=== PATIENT | male | born 1960 | race Caucasian/White ===

== ENCOUNTER 2016-08-22 15:17 | Emergency (ER) | payer MEDICAID ==
[2016-08-22 15:23] VITALS: BP 159/90; BMI 25.8
--- NOTE | 2016-08-22 15:55 | DR.EXTPAIN ---
HPI - Time seen Time seen: 15:55 - PCP Primary Care Physician: LASHA ARNDT - HPI Comment HPI Comment: PATIENT HAVE HAD PAIN IN RIGHT FOOT TIMES 2 MONTHS. WORSE PAST FEW PAINS. PAIN MORE BASE 2ND TOE. WALKING ON THE HILL. NO OBVIOUS INJURY REPORTED. - Complaint/Symptoms Chief Complaint Doctor Comments: RIGHT FOOT PAIN TIMES 2 MONTHS. Chief Complaint:: PT STATES " I THANK I BROKE MY RIGHT FOOT IT FEELS LIKE IT I HAVE NOT HAD ANY INJURY" - Nurses notes reviewed Nurses Notes Review: Yes - Source History Provided: Patient - Mode of arrival Mode of Arrival: Ambulatory - Timing Onset of Chief Complaint: 06/24/16 - Context History of: None - Associated signs and symptoms Associated Signs and Symptoms: Pain, Swelling PMH - PMH Past Medical History: No Past Medical History: Anxiety, Arthritis, Hypertension Past Surgical History: No Surgical History: Tonsillectomy - Family History History of Family Medical Conditions: Yes Family Medical History: Coronary Artery Disease, Hypertension - Social History Does patient currently use any type of tobacco product: Yes Have you used tobacco products in the last 12 months: Yes Type of Tobacco Use: Cigarettes Does any household member use tobacco: No Alcohol Use: Rarely Do you use any recreational Drugs:: No Lives With: Alone Lives Where: Home - infectious screening In the last 2 months have you had wt loss of >10#?: NO Have you had fever, night sweats or hemotysis?: No Have you traveled outside the country in the last 6 months?: No Isolation: Standard ROS - Review of Systems Constitutional: No Symptoms Reported Eyes: No Symptoms Reported ENTM: No Symptoms Reported Respiratoy: No Symptoms Reported Cardiovascular: No Symptoms Reported Gastrointestinal/Abdominal: No Symptoms Reported Genitourinary: No Symptoms Reported Neurological: No Symptoms Reported Musculoskeletal: Right, Ankle Integumentary: No Symptoms Reported Hematologic/Lymphatic: No Symptoms Reported Endocrine: No Symptoms Reported All Other Systems: Reviewed and Negative PE - Vital Signs Vitals: Pulse Rate 79 Respiratory Rate 20 Blood Pressure [Left Arm] 148/78 Blood Pressure 159/90 O2 Sat by Pulse Oximetry 100 - General Limitations: No Limitations - Head Head Exam: Normal Inspection - Eyes Eye exam: Normal Appearance - ENT ENT Exam: Normal External Ear Exam - Neck Neck Exam: Trachea Midline - Chest Chest Inspection: Symmetric Chest Wall Rise - Respiratory Respiratory Exam: Bilateral Clear to Auscultation - Cardiovascular Cardiovascular Exam: Regular Rate, Normal Rhythm, Normal Heart Sounds - Extremities Extremities Exam: Tenderness (RIGHT [employer]GY CONSERVATION [employer]IST DISTAL ASPECT.) - Lower Extremities Foot/Toe Exam: Tenderness (RT), Swelling (RT) - Skin Skin Exam: Normal Color MDM - Differential Diagnosis Differential Diagnosis: Fracture, Sprain Course - Treatment Treatment: SEE ORDERS - Education/Counseling Education/Counseling: Patient, Education Educated On: Treatment, Diagnosis, Needs for Follow Up ROR - XRAY XRAY Interpreted by: Radiologist XRAY Findings: REPORT DISCUSS WITH PATIENT. - Diagnosis Discharge Problem: Foot fracture, right Qualifiers: Encounter type: initial encounter Fracture type: closed Qualified Code(s): S92.901A - Unspecified fracture of right foot, initial encounter for closed fracture - Discharge Plan Disposition: HOME, SELF-CARE Condition: Stable Prescriptions: Ibuprofen [MOTRIN TAB 600 MG *] 600 mg PO TID PRN #20 tab PRN Reason: Pain/Inflammation Tramadol HCl 50 mg PO Q8H PRN #15 tab PRN Reason: Pain - Follow ups/Referrals Follow ups/Referrals: NFD,None [Primary Care Provider] - 2 days - Instructions Instructions: Toe Fracture Additional Instructions: RETURN TO ED IF WORSE.
--- NOTE | 2016-08-22 16:29 | RAD ---
HISTORY: Right foot pain. Comparison: None. EXAM: Three view series of the right foot. Findings: The exam demonstrates a subtle fracture of the base of the proximal 2nd phalanx; age indeterminate. There is a chronic appearing fracture of the mid shaft of the right 5th metatarsal bone with associa nicolasa angular deformity. No other acute fracture or acute bony injury is seen. Lisfranc joint is intac t without widening or divergence. There is mild dorsal foot soft tissue swelling edema also seen. No unexpected foreign bodies are identified. Impression: Fractures of the 5th and 2nd digits, as above. Reported By:
[2016-08-22] MEDS ORDERED: TORADOL 60 MG VIAL IM ONE (16:30)
[2016-08-22] MEDS ORDERED: TORADOL 60 MG VIAL ONE (16:36)
== END 2016-08-22 17:02 | disposition home or self-care (01) ==
LOC: ER 15:17
DX: S92.901A Unspecified fracture of right foot, initial encounter for closed fracture (principal); Y33.XXXA Other specified events, undetermined intent, initial encounter; Y92.9 Unspecified place or not applicable
CPT/HCPCS: 73630; 96372; 99282; 99283; J1885

== ENCOUNTER → 2016-09-11 | Outpatient (CLI) | payer MEDICAID ==
[2016-08-22 15:23] VITALS: BP 159/90
[2016-09-11 10:59] LABS: BASOPHILS % (AUTO) 0.3 % (0.2-1.0); EOSINOPHILS # (AUTO) 0.1 x10^3/uL (0.0-0.2); EOSINOPHILS % (AUTO) 0.9 % (0.9-2.9); HEMATOCRIT 43.9 % (42.0-54.0); HEMOGLOBIN 14.9 g/dL (13.5-18.0); MEAN CORPUSCULAR HEMOGLOBIN 30.3 pg (27.0-34.0); MEAN CORPUSCULAR HGB CONC 33.9 g/dL (33.0-35.0); MEAN CORPUSCULAR VOLUME 89.5 fL (80.0-100.0); MEAN PLATELET VOLUME 8.4 fL (7.4-11.0); MONOCYTES # (AUTO) 0.6 x10^3/uL (0.3-0.8); MONOCYTES % (AUTO) 6.3 % (0.0-13.0); NEUTROPHILS # (AUTO) 7.8 x10^3/uL (2.2-4.8); NEUTROPHILS % (AUTO) 81.5 % (42.0-75.0); PLATELET COUNT 127 X10^3/uL (150.0-450.0); RED CELL DISTRIBUTION WIDTH 14.6 % (11.6-16.5); WHITE BLOOD COUNT 9.5 X10^3/uL (3.6-10.0)
[2016-09-11 11:20] LABS: ALANINE AMINOTRANSFERASE 142 Units/L (12-78); ALKALINE PHOSPHATASE 64 Units/L (46-116); ASPARTATE AMINO TRANSFERASE 104 Units/L (15-37); BLOOD UREA NITROGEN 10 mg/dL (7-18); CALCIUM 8.7 mg/dL (8.5-10.1); CARBON DIOXIDE 25.9 mmol/L (21-32); CHLORIDE 104 mmol/L (98-107); CHOL/HDL RATIO 1.6 (0.0-5.0); CHOLESTEROL 182 mg/dL (0-200); COR NA(FOR HYPERGLY) 138 mmol/L (136-145); CREATININE 0.78 mg/dL (0.70-1.30); GLUCOSE 120 mg/dL (65-99); HDL CHOLESTEROL 112 mg/dL (40-60); SODIUM 138 mmol/L (136-145); T4 (THYROXINE) 7.9 ug/dL (4.7-13.3); TOTAL PROTEIN 8.7 g/dL (6.4-8.2); TRIGLYCERIDES 40 mg/dL (0-150); TSH (3RD GENERATION) 1.059 uIU/mL (0.358-3.74); eGFR BLACK RACES > 60 (>60); eGFR NON BLACK RACES > 60 (>60)
[2016-09-11 12:08] LABS: TOTAL PSA 3.04 ng/mL (0.13-4.0)
== END ==
LOC: LAB 10:36
PROVIDERS: ATTEND Nurse Practitioner Family
DX: Z85.89 Personal history of malignant neoplasm of other organs and systems (principal); Z87.898 Personal history of other specified conditions; Z87.81 Personal history of (healed) traumatic fracture
CPT/HCPCS: 36415; 80053; 80061; 82306; 82607; 83970; 84153; 84436; 84443; 85025; 85610; 86140

== ENCOUNTER 2016-12-23 23:17 | Emergency (ER) | payer MEDICAID ==
[2016-12-23 23:27] VITALS: BP 141/93
[2016-12-23 23:28] VITALS: BMI 23.8
== END 2016-12-24 00:10 | disposition left against medical advice (07) ==
LOC: ER 23:17
DX: M25.521 Pain in right elbow (principal); W10.9XXA Fall (on) (from) unspecified stairs and steps, initial encounter; Y92.9 Unspecified place or not applicable
CPT/HCPCS: 99281

== ENCOUNTER → 2017-04-02 | Outpatient (CLI) | payer MEDICAID ==
[2017-04-02 12:02] LABS: ALANINE AMINOTRANSFERASE 226 Units/L (12-78); ALBUMIN 3.8 g/dL (3.4-5.0); ALKALINE PHOSPHATASE 77 Units/L (46-116); ASPARTATE AMINO TRANSFERASE 116 Units/L (15-37); BLOOD UREA NITROGEN 11 mg/dL (7-18); CALCIUM 9.1 mg/dL (8.5-10.1); CHLORIDE 104 mmol/L (98-107); CHOL/HDL RATIO 1.9 (0.0-5.0); CHOLESTEROL 183 mg/dL (0-200); CREATININE 0.81 mg/dL (0.70-1.30); HDL CHOLESTEROL 95 mg/dL (40-60); SODIUM 139 mmol/L (136-145); TOTAL PROTEIN 8.4 g/dL (6.4-8.2); TRIGLYCERIDES 87 mg/dL (0-150); eGFR BLACK RACES > 60 (>60); eGFR NON BLACK RACES > 60 (>60)
[2017-04-02 12:04] LABS: BASOPHILS % (AUTO) 0.3 % (0.2-1.0); EOSINOPHILS # (AUTO) 0.1 x10^3/uL (0.0-0.2); EOSINOPHILS % (AUTO) 2.4 % (0.9-2.9); HEMATOCRIT 44.1 % (42.0-54.0); HEMOGLOBIN 15.1 g/dL (13.5-18.0); LYMPHOCYTES # (AUTO) 1.1 X10^3/uL (1.3-2.9); LYMPHOCYTES % (AUTO) 19.6 % (21.0-51.0); MEAN CORPUSCULAR HEMOGLOBIN 30.6 pg (27.0-34.0); MEAN CORPUSCULAR HGB CONC 34.2 g/dL (33.0-35.0); MEAN CORPUSCULAR VOLUME 89.5 fL (80.0-100.0); MEAN PLATELET VOLUME 8.7 fL (7.4-11.0); MONOCYTES # (AUTO) 0.8 x10^3/uL (0.3-0.8); MONOCYTES % (AUTO) 13.8 % (0.0-13.0); NEUTROPHILS # (AUTO) 3.5 x10^3/uL (2.2-4.8); NEUTROPHILS % (AUTO) 63.9 % (42.0-75.0); PLATELET COUNT 250 X10^3/uL (150.0-450.0); RED BLOOD COUNT 4.93 X10^6/uL (4.7-6.0); RED CELL DISTRIBUTION WIDTH 15.9 % (11.6-16.5); WHITE BLOOD COUNT 5.5 X10^3/uL (3.6-10.0)
[2017-04-02 12:26] LABS: TOTAL PSA 5.31 ng/mL (0.13-4.0)
--- NOTE | 2017-04-05 14:37 | RAD ---
History: Right foot pain Study AP and lateral and oblique views of the right foot Comparison: August 22, 2016 The findings: There is no interval change. There is an old fracture through the diaphysis of the 5th metatarsal with angulation and foreshortening at the fracture site. There are mild osteophytes about the interphalangeal joint of the great toe. There is no acute fracture. Impression: No change, old 5th metatarsal fracture, no acute disease demonstrated. Reported By:
== END ==
LOC: RAD 11:12
PROVIDERS: ATTEND Nurse Practitioner Family
DX: I10 Essential (primary) hypertension (principal); Z12.5 Encounter for screening for malignant neoplasm of prostate; E78.4 Other hyperlipidemia; E56.8 Deficiency of other vitamins; M79.671 Pain in right foot
CPT/HCPCS: 36415; 73630; 80053; 80061; 82306; 84153; 85025

== ENCOUNTER 2017-06-26 12:23 | Emergency (ER) | payer MEDICAID ==
[2017-06-26 12:28] VITALS: BMI 25.8
--- NOTE | 2017-06-26 13:11 | DR.GENAD ---
HPI - PCP Primary Care Physician: NFD - Complaint/Symptoms Chief Complaint Doctors Comments: Patient admits to slipping and fell from porch sustaine injury to right lower back. Admits to pain and lump on back. Chief Complaint:: "A couple of weeks ago when it snowed I fell and hit my back on the bottom step of my porch. I figured it would go away, but it has gotten worse. I have a huge knot on the right side of my lower back that hasn't went away." - Source History Provided: Patient - Mode of Arrival Mode of Arrival: Ambulatory - Timing Onset of Chief Complaint: 06/09/17 PMH - PMH Past Medical History: Yes Past Medical History: Anxiety, Arthritis, Hypertension Past Surgical History: Yes Surgical History: Ortho Surgery, Tonsillectomy Past Surgical History Comment: Finger, eye - Family History History of Family Medical Conditions: Yes Family Medical History: Coronary Artery Disease, Hypertension - Social History Does patient currently use any type of tobacco product: Yes Have you used tobacco products in the last 12 months: Yes Type of Tobacco Use: Cigarettes Does any household member use tobacco: No Alcohol Use: None Do you use any recreational Drugs:: No Lives With: Alone Lives Where: Home - infectious screening In the last 2 months have you had wt loss of >10#?: NO Have you had fever, night sweats or hemotysis?: No Have you traveled outside the country in the last 6 months?: No Isolation: Standard ROS - Review of Systems Eyes: No Symptoms Reported ENTM: No Symptoms Reported Respiratoy: No Symptoms Reported Cardiovascular: No Symptoms Reported Gastrointestinal/Abdominal: No Symptoms Reported Genitourinary: No Symptoms Reported Neurological: No Symptoms Reported Musculoskeletal: Back Pain Integumentary: No Symptoms Reported Hematologic/Lymphatic: No Symptoms Reported Endocrine: No Symptoms Reported Psychiatric: No Symptoms Reported All Other Systems: Reviewed and Negative PE - Vital Signs Vitals: Temperature 97.8 F Pulse Rate [Left Brachial] 95 Pulse Rate 83 Respiratory Rate 20 Blood Pressure [Right Arm] 161/76 Blood Pressure [Left Arm] 172/79 Blood Pressure 134/74 O2 Sat by Pulse Oximetry 97 - General Limitations: No Limitations General Appearance: Alert, In No Apparent Distress - Head Head Exam: Normal Inspection, Atraumatic - Eyes Eye exam: Normal Appearance, PERRL, EOMI - ENT ENT Exam: Normal Exam, Normal Oropharynx External Ear Exam: Normal External Inspection TM/Canal Exam: Bilateral Normal Nose Exam: Normal Nose Exam Mouth Exam: Normal Inspection Throat Exam: Normal Inspection - Neck Neck Exam: Normal Inspection, Full ROM - Chest Chest Inspection: Normal Inspection, Symmetric Chest Wall Rise - Respiratory Respiratory Exam: Normal Lung Sounds Bilat Respiratory Exam: Bilateral Clear to Auscultation - Cardiovascular Cardiovascular Exam: Regular Rate, Normal Rhythm - Abdominal Exam Abdominal Exam: Normal Inspection, Normal Bowel Sounds Abdominal Tenderness: negative: RUQ, RLQ, LUQ, LLQ, Epigastrium, Suprapubic, Diffuse, Mild, Moderate, Severe, Other - Extremities Extremities Exam: Normal Inspection, Full ROM - Back Back Exam: Other (A large fluctuant non erythematous skin colored mass Right lower paraspinal area.) - Neurologic Neurological Exam: Alert, Oriented X3, CN II-XII Intact - Psychiatric Psychiatric Exam: Normal Affect, Normal Mood - Skin Skin Exam: Warm, Dry, Intact ROR - Labs Reviewed Result Diagrams: 06/26/17 13:46 06/26/17 13:46 Laboratory: WBC 5.5 X10^3/uL (3.6-10.0) 06/26/17 13:46 RBC 5.18 X10^6/uL (4.7-6.0) 06/26/17 13:46 Hgb 15.9 g/dL (13.5-18.0) 06/26/17 13:46 Hct 47.0 % (42.0-54.0) 06/26/17 13:46 MCV 90.8 fL (80.0-100.0) 06/26/17 13:46 MCH 30.7 pg (27.0-34.0) 06/26/17 13:46 MCHC 33.8 g/dL (33.0-35.0) 06/26/17 13:46 RDW 14.1 % (11.6-16.5) 06/26/17 13:46 Plt Count 213 X10^3/uL (150.0-450.0) 06/26/17 13:46 MPV 7.9 fL (7.4-11.0) 06/26/17 13:46 Neut % 66.1 % (42.0-75.0) 06/26/17 13:46 Lymph % 19.5 % (21.0-51.0) L 06/26/17 13:46 Camp % 10.5 % (0.0-13.0) 06/26/17 13:46 Eos % 2.6 % (0.9-2.9) 06/26/17 13:46 Baso % 1.3 % (0.2-1.0) H 06/26/17 13:46 Neut # 3.6 x10^3/uL (2.2-4.8) 06/26/17 13:46 Lymph # 1.1 X10^3/uL (1.3-2.9) L 06/26/17 13:46 Camp # 0.6 x10^3/uL (0.3-0.8) 06/26/17 13:46 Eos # 0.1 x10^3/uL (0.0-0.2) 06/26/17 13:46 Baso # 0.1 X10^3/uL (0.0-0.1) 06/26/17 13:46 Absolute Nucleated RBC 0.0 /100WBC 06/26/17 13:46 Sodium 139 mmol/L (136-145) 06/26/17 13:46 Corrected Sodium TNP 06/26/17 13:46 Potassium 4.5 mmol/L (3.5-5.1) 06/26/17 13:46 Chloride 104 mmol/L (98-107) 06/26/17 13:46 Carbon Dioxide 28.1 mmol/L (21-32) 06/26/17 13:46 BUN 8 mg/dL (7-18) 06/26/17 13:46 Creatinine 0.94 mg/dL (0.70-1.30) 06/26/17 13:46 Est GFR (MDRD) Af Amer > 60 (>60) 06/26/17 13:46 Est GFR (MDRD) Non-Af > 60 (>60) 06/26/17 13:46 Glucose 94 mg/dL (65-99) 06/26/17 13:46 Calcium 9.2 mg/dL (8.5-10.1) 06/26/17 13:46 Corrected Calcium TNP 06/26/17 13:46 Total Bilirubin 0.40 mg/dL (0.2-1.0) 06/26/17 13:46 AST 77 Units/L (15-37) H 06/26/17 13:46 ALT 105 Units/L (12-78) H 06/26/17 13:46 Alkaline Phosphatase 71 Units/L (46-116) 06/26/17 13:46 Total Protein 8.8 g/dL (6.4-8.2) H 06/26/17 13:46 Albumin 3.9 g/dL (3.4-5.0) 06/26/17 13:46 Globulin 4.9 g/dL (2.5-4.5) H 06/26/17 13:46 Albumin/Globulin Ratio 0.8 Ratio (1.1-2.1) L 06/26/17 13:46 - XRAY XRAY Interpreted by: Radiologist (CT Lumbar Spine: Alignment of the lumbar spine is maintained. No evidence of acute fracture or subluxation can be identified. There is moderate mutilevel discogenic degenerative disease and facet arthropathy. No destructive osseous lesions are seen. k Beginning at the level of L4 and extending to S1 at the iliac crest, there is a transversly oriented hyperdense fluid collection within the subcutaneous fat which measures 8.5x7.5x2.5cm in greatest transverse, craniocaudal and AP dimensions most consistent with an acute right dorsal lower thoracic subcutaneous fat hematoma. Therre is an incidental small pneumatocele in the right lower lobe. Impressipn: Right paraspinal subcutaneous fat hematoma. No acute fracture or subluxation identified.) - Diagnosis Discharge Problem: Rt Paraspinal subcutaneous fat hematoma - Discharge Plan Condition: Stable - Follow ups/Referrals Follow ups/Referrals: NFD,None [Primary Care Provider] - 3 days - Instructions
[2017-06-26] MEDS ORDERED: TORADOL 60 MG VIAL IM ONE (13:38)
[2017-06-26] MEDS ORDERED: TORADOL 60 MG VIAL ONE (13:40)
[2017-06-26 13:52] VITALS: BP 172/79
[2017-06-26 13:57] LABS: BASOPHILS # (AUTO) 0.1 X10^3/uL (0.0-0.1); BASOPHILS % (AUTO) 1.3 % (0.2-1.0); EOSINOPHILS # (AUTO) 0.1 x10^3/uL (0.0-0.2); EOSINOPHILS % (AUTO) 2.6 % (0.9-2.9); HEMOGLOBIN 15.9 g/dL (13.5-18.0); LYMPHOCYTES # (AUTO) 1.1 X10^3/uL (1.3-2.9); LYMPHOCYTES % (AUTO) 19.5 % (21.0-51.0); MEAN CORPUSCULAR HEMOGLOBIN 30.7 pg (27.0-34.0); MEAN CORPUSCULAR HGB CONC 33.8 g/dL (33.0-35.0); MEAN CORPUSCULAR VOLUME 90.8 fL (80.0-100.0); MEAN PLATELET VOLUME 7.9 fL (7.4-11.0); MONOCYTES # (AUTO) 0.6 x10^3/uL (0.3-0.8); MONOCYTES % (AUTO) 10.5 % (0.0-13.0); NEUTROPHILS # (AUTO) 3.6 x10^3/uL (2.2-4.8); NEUTROPHILS % (AUTO) 66.1 % (42.0-75.0); PLATELET COUNT 213 X10^3/uL (150.0-450.0); RED BLOOD COUNT 5.18 X10^6/uL (4.7-6.0); RED CELL DISTRIBUTION WIDTH 14.1 % (11.6-16.5); WHITE BLOOD COUNT 5.5 X10^3/uL (3.6-10.0)
[2017-06-26 14:05] LABS: ALANINE AMINOTRANSFERASE 105 Units/L (12-78); ALBUMIN 3.9 g/dL (3.4-5.0); ALKALINE PHOSPHATASE 71 Units/L (46-116); ASPARTATE AMINO TRANSFERASE 77 Units/L (15-37); BLOOD UREA NITROGEN 8 mg/dL (7-18); CALCIUM 9.2 mg/dL (8.5-10.1); CARBON DIOXIDE 28.1 mmol/L (21-32); CHLORIDE 104 mmol/L (98-107); CREATININE 0.94 mg/dL (0.70-1.30); SODIUM 139 mmol/L (136-145); TOTAL PROTEIN 8.8 g/dL (6.4-8.2); eGFR BLACK RACES > 60 (>60); eGFR NON BLACK RACES > 60 (>60)
--- NOTE | 2017-06-26 14:31 | CT ---
HISTORY: Status post fall with right-sided low back pain and swelling Study: CT lumbar spine without contrast Comparison: None Technique: Multiple axial images of the lumbar spine were obtained from the thoracolumbar junction t o the sacrum without the administration of IV contrast. Sagittal and coronal reformats were performe d and reviewed. AEC was utilized. Findings: Alignment of the lumbar spine is maintained. No evidence for acute fracture or subluxation can be id entified. There is moderate multilevel discogenic degenerative disease and facet arthropathy. No de structive osseous lesions are seen. Beginning at the level of L4 and extending to S1 at the iliac cr est, there is a transversely oriented hyperdense fluid collection within the subcutaneous fat which m easures 8.5 x 7.5 x 2.5 cm in greatest transverse, craniocaudal, and AP dimensions most consistent wi th an acute right dorsal lower thoracic subcutaneous fat hematoma. There is an incidental small pneum atocele in the right lower lobe. IMPRESSION: Right paraspinal subcutaneous fat hematoma. No acute fracture or subluxation identified. Reported By:
== END 2017-06-26 14:55 | disposition home or self-care (01) ==
LOC: ER 12:30
DX: M79.81 Nontraumatic hematoma of soft tissue (principal); W19.XXXA Unspecified fall, initial encounter; Y92.9 Unspecified place or not applicable
CPT/HCPCS: 36415; 72131; 80053; 85025; 96372; 99282; 99283; J1885

== ENCOUNTER → 2017-09-29 | Outpatient (CLI) | payer MEDICAID ==
[2017-09-29 17:31] LABS: BASOPHILS % (AUTO) 0.6 % (0.2-1.0); EOSINOPHILS # (AUTO) 0.1 x10^3/uL (0.0-0.2); EOSINOPHILS % (AUTO) 2.1 % (0.9-2.9); HEMATOCRIT 45.1 % (42.0-54.0); HEMOGLOBIN 15.8 g/dL (13.5-18.0); LYMPHOCYTES # (AUTO) 1.2 X10^3/uL (1.3-2.9); LYMPHOCYTES % (AUTO) 22.2 % (21.0-51.0); MEAN CORPUSCULAR HEMOGLOBIN 31.4 pg (27.0-34.0); MEAN CORPUSCULAR HGB CONC 35.1 g/dL (33.0-35.0); MEAN CORPUSCULAR VOLUME 89.6 fL (80.0-100.0); MEAN PLATELET VOLUME 7.6 fL (7.4-11.0); MONOCYTES # (AUTO) 0.7 x10^3/uL (0.3-0.8); MONOCYTES % (AUTO) 12.8 % (0.0-13.0); NEUTROPHILS # (AUTO) 3.4 x10^3/uL (2.2-4.8); NEUTROPHILS % (AUTO) 62.3 % (42.0-75.0); PLATELET COUNT 307 X10^3/uL (150.0-450.0); RED BLOOD COUNT 5.04 X10^6/uL (4.7-6.0); RED CELL DISTRIBUTION WIDTH 14.5 % (11.6-16.5); WHITE BLOOD COUNT 5.5 X10^3/uL (3.6-10.0)
[2017-09-29 17:57] LABS: ALANINE AMINOTRANSFERASE 154 Units/L (12-78); ALBUMIN 4.5 g/dL (3.4-5.0); ALKALINE PHOSPHATASE 82 Units/L (46-116); ASPARTATE AMINO TRANSFERASE 114 Units/L (15-37); BLOOD UREA NITROGEN 13 mg/dL (7-18); CALCIUM 8.8 mg/dL (8.5-10.1); CARBON DIOXIDE 22.9 mmol/L (21-32); CHLORIDE 99 mmol/L (98-107); CHOLESTEROL 176 mg/dL (0-200); CREATININE 0.91 mg/dL (0.70-1.30); HDL CHOLESTEROL 88 mg/dL (40-60); SODIUM 132 mmol/L (136-145); TOTAL PROTEIN 9.4 g/dL (6.4-8.2); TRIGLYCERIDES 60 mg/dL (0-150); eGFR BLACK RACES > 60 (>60); eGFR NON BLACK RACES > 60 (>60)
[2017-09-29 18:02] LABS: RHEUMATOID FACTOR NEGATIVE (NEGATIVE)
[2017-09-29 18:06] LABS: ERYTHROCYTE SEDIMENTATION RATE 7 MM/HOUR (0-15)
--- NOTE | 2017-09-30 09:46 | RAD ---
HISTORY: Bilateral foot pain Study: Three views of the right foot Comparison: April 02, 2016 Findings: Images again demonstrate an old obliquely oriented fracture involving the right 5th metatarsal which has not significantly changed. Mild degenerative changes of the mid and hindfoot are noted. Minimal s purring is seen along the plantar insertion of the calcaneus. IMPRESSION: Old fracture involving the right 5th metatarsal which was also demonstrated on prior exam and has not significantly changed. Mild degenerative changes as noted above. Reported By:
--- NOTE | 2017-09-30 09:47 | RAD ---
HISTORY: Bilateral foot pain Study: Three views of the left foot Comparison: Radiographs of the left ankle performed on March 23, 2016 Findings: Images demonstrate an old fracture involving the medial malleolus which was also demonstrated on prev ious exam. Otherwise no evidence of acute displaced fracture or dislocation is identified. Minimal sp urring is seen along the plantar insertion of the calcaneus. Mild degenerative changes of the mid and hindfoot are noted. No radiopaque foreign bodies are noted. IMPRESSION: Old fracture involving the medial malleolus which was also demonstrated on previous exam. Mild degenerative changes as noted above. Reported By:
[2017-10-03 09:26] LABS: ANTI-NUCLEAR ANTIBODY TEST None Detected (None Detected)
== END | disposition home or self-care (01) | DRG 305 ==
LOC: RAD 16:55
PROVIDERS: ATTEND Nurse Practitioner Family
DX: I10 Essential (primary) hypertension (principal); M19.90 Unspecified osteoarthritis, unspecified site; E78.4 Other hyperlipidemia; R35.1 Nocturia; M79.671 Pain in right foot; M79.672 Pain in left foot; R79.82 Elevated C-reactive protein (CRP)
CPT/HCPCS: 36415; 73630; 80053; 80061; 84153; 84154; 85025; 85652; 86140; 86200; 86308; 86430